=== PATIENT | female | born 2000 | race Hispanic/Latino ===

== ENCOUNTER 2020-05-12 15:19 | Emergency (ER) | payer SELFPAY ==
--- OUTSIDE RECORDS SUMMARY | 2020-05-12 15:22 | XMS REPORT | Continuity of Care Document ---
:2000 Author Organization [facility] t Address [address] [place] [address] Care Team Providers Name Role Phone Unavailable Unavailable Unavailable Problems Condition Condition Condition Status Onset Resolution Last Treating Co mments Source Name Details Category Date Date Treatment Clinician Date Problem Active [facility] depression Depression 9-17 da 00:00: Medical 00 Group Insertion Insertion Problem Active 0 [facility] of of 9-17 da intrauteri Intrauteri 00:00: Me dical ne ne 00 Group contracept Contracept leah device leah Device - - Problem Active 0 [facility] induced induced 6-17 da hypertensi Hypertensi 00:00: Me dical on on 00 Group Allergies, Adverse Reactions, Alerts This patient has no known allergies or adverse reactions. Social History Smoking Status Start Date Stop Date Source Never Smoker [facility] Medications Ordered Filled Start Stop Current Ordering Indication Dosage Frequency Signature Comments Components Source Medication Medication Date Date Medication? Clinician (SIG) Name Name Mirena 20 Mirena 20 No 1device Mirena 20 [facility] mcg/24 mcg/24 (s) mcg/24 da hours (6 hours (6 hours (6 Med ical yrs) 52 mg yrs) 52 mg yrs) 52 mg Group intrauterin intrauterin intrauteri e device e device ne device Take 1 Take 1 Take 1 device by device by device by intrauterin intrauterin intrauteri e route. e route. ne route. Immunizations Ordered Immunization Filled Immunization Date Status Commen ts Source Name Name Tdap Tdap 2018-06-18 Completed [facility] influenza, influenza, 2018-02-28 Completed [facility] injectable, injectable, 00:00:00 [facility] Grou p quadrivalent quadrivalent Vital Signs Vital Name Observation Time Observation Value Comments Source BMI (Body Mass 2020-04-27 00:00:00 40.6 kg/m2 [facility]) Group BP Systolic 2020-04-27 00:00:00 130 mm[Hg] [facility] Body Weight 2020-04-27 00:00:00 221[facility] BP Diastolic 2020-04-27 00:00:00 70 mm[Hg] [facility] Height 2020-04-27 00:00:00 62 [in_i] [facility] BP Diastolic 2018-11-12 00:00:00 78 mm[Hg] [facility] Height 2018-11-12 00:00:00 62 [in_i] [facility] BMI (Body Mass 2018-11-12 00:00:00 35.1 kg/m2 [facility]) Group BP Systolic 2018-11-12 00:00:00 132 mm[Hg] [facility] Body Weight 2018-11-12 00:00:00 191.9 [lb_av] [facility] Height 2018-09-19 00:00:00 62 [in_i] [facility] BP Diastolic 2018-08-23 00:00:00 87 mm[Hg] [facility] Height 2018-08-23 00:00:00 62 [in_i] [facility] BMI (Body Mass 2018-08-23 00:00:00 37.5 kg/m2 [facility]) Group BP Systolic 2018-08-23 00:00:00 135 mm[Hg] [facility] Body Weight 2018-08-23 00:00:00 205 [lb_av] [facility] BP Diastolic 2018-08-12 00:00:00 92 mm[Hg] [facility] Height 2018-08-12 00:00:00 62 [in_i] [facility] BMI (Body Mass 2018-08-12 00:00:00 37.3 kg/m2 [facility]) Group BP Systolic 2018-08-12 00:00:00 134 mm[Hg] [facility] Body Weight 2018-08-12 00:00:00 204 [lb_av] [facility] BP Diastolic 2018-07-29 00:00:00 75 mm[Hg] [facility] Height 2018-07-29 00:00:00 62 [in_i] [facility] BMI (Body Mass 2018-07-29 00:00:00 36.6 kg/m2 [facility]) Group BP Systolic 2018-07-29 00:00:00 132 mm[Hg] [facility] Body Weight 2018-07-29 00:00:00 200 [lb_av] [facility] BP Diastolic 2018-07-25 00:00:00 77 mm[Hg] [facility] Height 2018-07-25 00:00:00 62 [in_i] [facility] BMI (Body Mass 2018-07-25 00:00:00 36.7 kg/m2 [facility]) Group BP Systolic 2018-07-25 00:00:00 129 mm[Hg] [facility] Body Weight 2018-07-25 00:00:00 200.4 [lb_av] [facility] Procedures Procedure Date / Time Performing Clinician Source Performed Laparoscopic 2020-04-15 00:00:00 [facility] US, pelvis 2018-11-12 00:00:00 [facility] US, obstetric, limited 2018-07-29 00:00:00 [facility] Encounters Start End Encounter Admission Attending Care Care Encounter Source Date/Time Date/Time Type Type Clinicians Facility Department ID 2020-04-27 2020-04-27 Rich MOLINA [place] - [id number] [facility] 00:00:00 00:00:00 Antoine Leon MD: Medical Med[facility] l [address] [place] [address] General [address], [place] [address] , Ph. [phone] 2018-11-12 2018-11-12 Chilo [facility] [place] - [id number] [facility] 00:00:00 00:00:00 Discovery nicholas Guthrie MD: [address] [place] [address] [address], [place] [address] , Ph. [phone] 2018-09-19 2018-09-19 Chilo [facility] [place] - [id number] M [facility] 00:00:00 00:00:00 Discovery nicholas Guthrie MD: [address] [place] [address] [address], [place] [address] , Ph. [phone] 2018-08-23 2018-08-23 Donna [facility] [place] - [id number] [facility] 00:00:00 00:00:00 [facility] MD: [address] [place] [address] , Ph. [phone] 2018-08-12 2018-08-12 Betzaida Reilly [facility] [place] - [id number] [facility] 00:00:00 00:00:00 Discovery Juwan Srivastava: [facility] Medical [facility]ica [address] [address] , Ph. [phone] 2018-07-29 2018-07-29 Donna [facility] [place] - [id number] M [facility] 00:00:00 00:00:00 [facility] MD: [address] [place] [address] , Ph. [phone] 2018-07-25 2018-07-25 Donna [facility] [place] - [id number] [facility] 00:00:00 00:00:00 [facility] ORELLANA: [address] [facility], OBGYN [address], [place] [address] , Ph. [phone] Results Test Description Test Time Test Comments Results Result Comments Source Surgical pathology 2020-04-15 Results [facility] hop strainer study 02:25:00 Medical Group SARS-CoV-2 2020-04-15 80023-6 [facility] (COVID-19) RNA 01:07:00 Medical Gr oup [Presence] in Respiratory specimen by KAMALJIT with probe detection test, urine 2018-11-12 14:02:34 Test Item Value Reference Range Interpretation Comme nts Test (test code = Test) negative [facility] W Auto Differential panel - [id number] 00:00:00 Test Item Value Reference Range Interpretation Comments white blood count (test code = 17.7 K/uL 4.0-11.5 H white blood count) red blood count (test code = red 3.93 M/uL 3.80-5.20 blood count) hemoglobin (test code = 11.1 g/dL 10.5-15.7 hemoglobin) hematocrit (test code = 34.5 % 34.0-50.0 hematocrit) Erythrocyte mean corpuscular 87.8 fL 86-100 volume [Entitic volume] (test code = 71290-3) Erythrocyte mean corpuscular 28.2 pg 26.2-33.4 hemoglobin [Entitic mass] (test code = 73264-9) mean corpuscular HGB conc (test 32.2 g/dL 30-34 code = mean corpuscular HGB conc) red cell distribution width (test 13.6 % 12.0-15.5 code = red cell distribution width) platelet count (test code = 233 K/uL 165-450 platelet count) mean platelet volume (test code = 10.5 fL 9.4-12.6 mean platelet volume) Neutrophils.segmented/100 81.2 % 44.4-80.1 H leukocytes in Blood (test code = 31833-2) Ig% (test code = Ig%) 0.5 % 0.0-0.4 H lymphocyte% (test code = 12.5 % 10.0-50.0 lymphocyte%) Monocytes/100 leukocytes in Blood 5.1 % 3.6-12.0 by Automated count (test code = 5905-5) Eosinophils/100 leukocytes in 0.1 % 0.0-5.4 Blood by Automated count (test code = 713-8) Basophils/100 leukocytes in 0.6 % 0.1-1.2 Unspecified specimen (test code = 47864-2) absolute neutrophil count (test 14.37 K/uL 1.56-6.13 H code = absolute neutrophil count) Ig# (test code = Ig#) 0.1 K/uL 0.0-0.03 H Lymphocytes [#/volume] in 2.2 K/uL 1.18-3.74 Unspecified specimen by Automated count (test code = 39279-3) mono # (test code = mono #) 0.90 K/uL 0.24-0.86 H eos # (test code = eos #) 0.02 K/uL 0.04-0.36 L basophil # (test code = basophil 0.10 K/uL 0.01-0.08 H #) NRBC% (test code = NRBC%) 0 /100 WBC 0-0.2 NRBC# (test code = NRBC#) 0 K/uL [facility] panel - [id number] 00:00:00 Test Item Value Reference Range Interpretation Comments Color of Urine by Auto (test code = yellow 38352-9) Appearance of Urine (test code = clear clear 5767-9) Glucose [Presence] in Urine by negative negative Automated test strip (test code = 99002-2) Bilirubin.total [Mass/volume] in negative negative Urine (test code = 1978-6) Ketones [Mass/volume] in Urine by =1 negative H Automated test strip (test code = 65807-7) Specific gravity of Urine by 1.022 1.003-1.030 Automated test strip (test code = 79199-7) blood urine (test code = blood =3 negative H urine) pH of Urine (test code = 2756-5) 6.500 5-9 protein urine (UA) (test code = trace negative protein urine (UA)) Urobilinogen [Presence] in Urine normal 0.2-1.0 (test code = 55502-2) Nitrite [Presence] in Urine by Test negative negative strip (test code = 5802-4) Leukocyte esterase [Presence] in =1 negative H Urine by Automated test strip (test code = 62660-7) Erythrocytes [#/volume] in Urine by =20-29 0-5 H Automated count (test code = 798-9) Leukocytes [#/area] in Urine =6-10 0-5 H sediment by Automated count (test code = 81660-1) Epithelial cells [Presence] in Urine =1-5 0-5 sediment by Light microscopy (test code = 38614-1) Bacteria identified in Urine by small(1 none detect Culture (test code = 630-4) Casts [#/area] in Urine sediment by =6-10 none detect H Automated count (test code = 15440-8) urine culture added? (test code = yes urine culture added?) [facility] W Auto Differential panel - [id number] 00:00:00 Test Item Value Reference Range Interpretation Comments white blood count (test code = 14.4 K/uL 4.0-11.5 H white blood count) red blood count (test code = red 4.51 M/uL 3.80-5.20 blood count) hemoglobin (test code = 12.5 g/dL 10.5-15.7 hemoglobin) hematocrit (test code = 38.2 % 34.0-50.0 hematocrit) Erythrocyte mean corpuscular 84.7 fL 86-100 L volume [Entitic volume] (test code = 75397-5) Erythrocyte mean corpuscular 27.7 pg 26.2-33.4 hemoglobin [Entitic mass] (test code = 87057-9) mean corpuscular HGB conc (test 32.7 g/dL 30-34 code = mean corpuscular HGB conc) red cell distribution width (test 13.5 % 12.0-15.5 code = red cell distribution width) platelet count (test code = 273 K/uL 165-450 platelet count) mean platelet volume (test code = 11.1 fL 9.4-12.6 mean platelet volume) Neutrophils.segmented/100 78.5 % 44.4-80.1 leukocytes in Blood (test code = 99167-8) Ig% (test code = Ig%) 0.6 % 0.0-0.4 H lymphocyte% (test code = 14.8 % 10.0-50.0 lymphocyte%) Monocytes/100 leukocytes in Blood 5.4 % 3.6-12.0 by Automated count (test code = 5905-5) Eosinophils/100 leukocytes in 0.3 % 0.0-5.4 Blood by Automated count (test code = 713-8) Basophils/100 leukocytes in 0.4 % 0.1-1.2 Unspecified specimen (test code = 67340-4) absolute neutrophil count (test 11.28 K/uL 1.56-6.13 H code = absolute neutrophil count) Ig# (test code = Ig#) 0.1 K/uL 0.0-0.03 H Lymphocytes [#/volume] in 2.1 K/uL 1.18-3.74 Unspecified specimen by Automated count (test code = 64567-8) mono # (test code = mono #) 0.78 K/uL 0.24-0.86 eos # (test code = eos #) 0.04 K/uL 0.04-0.36 basophil # (test code = basophil 0.06 K/uL 0.01-0.08 #) NRBC% (test code = NRBC%) 0 /100 WBC 0-0.2 NRBC# (test code = NRBC#) 0 K/uL [facility] by [id number] 00:00:00Bacteria Ur [facility] HospitalReagin Ab [Presence] in Serum by [id number] 00:00:00 Test Item Value Reference Range Interpretation Comments Reagin Ab [Presence] in Serum by nonreactive nonreactive RPR (test code = 51794-7) [facility] virus surface Ag [Presence] in Serum 2018-08-29 00:00:00 Test Item Value Reference Range Interpretation Comments .hepatitis B surface antigen (test negative negative code = .hepatitis B surface antigen) [facility] macro (dipstick) panel - [id number] 14:04:00 Test Item Value Reference Range Interpretation Comments Leukocytes (test code = Leukocytes) Trace Nitrite (test code = Nitrite) negative Urobilinogen (test code = .2 Urobilinogen) Protein (test code = Protein) Negative pH (test code = pH) 6.0 Blood (test code = Blood) Negative Specific [place] (test code = 1.030 Specific [place]) Ketone (test code = Ketone) Negative Bilirubin (test code = Bilirubin) Negative Glucose (test code = Glucose) Negative Appearance (test code = Appearance) Clear Color (test code = Color) Yellow [facility] macro (dipstick) panel - [id number] 14:04:00 Test Item Value Reference Range Interpretation Comments Leukocytes (test code = Leukocytes) Trace Nitrite (test code = Nitrite) negative Urobilinogen (test code = .2 Urobilinogen) Protein (test code = Protein) Negative pH (test code = pH) 6.0 Blood (test code = Blood) Negative Specific [place] (test code = 1.030 Specific [place]) Ketone (test code = Ketone) Negative Bilirubin (test code = Bilirubin) Negative Glucose (test code = Glucose) Negative Appearance (test code = Appearance) Clear Color (test code = Color) Yellow [facility] macro (dipstick) panel - [id number] 10:41:52 Test Item Value Reference Range Interpretation Comments Leukocytes (test code = Leukocytes) Negative Nitrite (test code = Nitrite) negative Urobilinogen (test code = .2 Urobilinogen) Protein (test code = Protein) Negative pH (test code = pH) 7.0 Blood (test code = Blood) Negative Specific [place] (test code = 1.025 Specific [place]) Ketone (test code = Ketone) Negative Bilirubin (test code = Bilirubin) Negative Glucose (test code = Glucose) Negative Appearance (test code = Appearance) Clear Color (test code = Color) Yellow [facility] macro (dipstick) panel - [id number] 10:41:52 Test Item Value Reference Range Interpretation Comments Leukocytes (test code = Leukocytes) Negative Nitrite (test code = Nitrite) negative Urobilinogen (test code = .2 Urobilinogen) Protein (test code = Protein) Negative pH (test code = pH) 7.0 Blood (test code = Blood) Negative Specific [place] (test code = 1.025 Specific [place]) Ketone (test code = Ketone) Negative Bilirubin (test code = Bilirubin) Negative Glucose (test code = Glucose) Negative Appearance (test code = Appearance) Clear Color (test code = Color) Yellow [facility] macro (dipstick) panel - [id number] 09:53:00 Test Item Value Reference Range Interpretation Comments Leukocytes (test code = Leukocytes) Trace Nitrite (test code = Nitrite) negative Urobilinogen (test code = .2 Urobilinogen) Protein (test code = Protein) Negative pH (test code = pH) 6.0 Blood (test code = Blood) Negative Specific [place] (test code = 1.020 Specific [place]) Ketone (test code = Ketone) Negative Bilirubin (test code = Bilirubin) Negative Glucose (test code = Glucose) Negative Appearance (test code = Appearance) Clear Color (test code = Color) Yellow [facility] macro (dipstick) panel - [id number] 09:53:00 Test Item Value Reference Range Interpretation Comments Leukocytes (test code = Leukocytes) Trace Nitrite (test code = Nitrite) negative Urobilinogen (test code = .2 Urobilinogen) Protein (test code = Protein) Negative pH (test code = pH) 6.0 Blood (test code = Blood) Negative Specific [place] (test code = 1.020 Specific [place]) Ketone (test code = Ketone) Negative Bilirubin (test code = Bilirubin) Negative Glucose (test code = Glucose) Negative Appearance (test code = Appearance) Clear Color (test code = Color) Yellow [facility] [Presence] in Unspecified specimen by Organism specific [id number] 00:00:00 Test Item Value Reference Range Interpretation Comments group B streptococcus (gbs) by negative real-time PCR (test code = group B streptococcus (gbs) by real-time PCR) [facility] GroupStreptococcus agalactiae [Presence] in Unspecified specimen by Organism specific [id number] 00:00:00 Test Item Value Reference Range Interpretation Comments group B streptococcus (gbs) by negative real-time PCR (test code = group B streptococcus (gbs) by real-time PCR) [facility] HospitalChlamydia trachomatis+Neisseria gonorrhoeae DNA [Presence] in Unspecified specimen by Probe and target amplification method 2018-08-01 00:00:00 Test Item Value Reference Range Interpretation Comments chlamydia trachomatis by real-time negative PCR (reflex to azithromycin resistance by pyrosequencing) (test code = chlamydia trachomatis by real-time PCR (reflex to azithromycin resistance by pyrosequencing)) neisseria gonorrhoeae by real-time negative PCR (reflex to antibiotic resistance by molecular analysis) (test code = neisseria gonorrhoeae by real-time PCR (reflex to antibiotic resistance by molecular analysis)) [facility]omat[facility]+Neisseria gonorrhoeae DNA [Presence] in Unspecified specimen by Probe and target amplification method 2018-08-01 00:00:00 Test Item Value Reference Range Interpretation Comments chlamydia trachomatis by real-time negative PCR (reflex to azithromycin resistance by pyrosequencing) (test code = chlamydia trachomatis by real-time PCR (reflex to azithromycin resistance by pyrosequencing)) neisseria gonorrhoeae by real-time negative PCR (reflex to antibiotic resistance by molecular analysis) (test code = neisseria gonorrhoeae by real-time PCR (reflex to antibiotic resistance by molecular analysis)) [facility] macro (dipstick) panel - [id number] 10:11:00 Test Item Value Reference Range Interpretation Comments Leukocytes (test code = Leukocytes) Negative Nitrite (test code = Nitrite) negative Urobilinogen (test code = .2 Urobilinogen) Protein (test code = Protein) Trace pH (test code = pH) 7.0 Blood (test code = Blood) Negative Specific [place] (test code = 1.025 Specific [place]) Ketone (test code = Ketone) Negative Bilirubin (test code = Bilirubin) Negative Glucose (test code = Glucose) Negative Appearance (test code = Appearance) Clear Color (test code = Color) Yellow [facility] macro (dipstick) panel - [id number] 10:11:00 Test Item Value Reference Range Interpretation Comments Leukocytes (test code = Leukocytes) Negative Nitrite (test code = Nitrite) negative Urobilinogen (test code = .2 Urobilinogen) Protein (test code = Protein) Trace pH (test code = pH) 7.0 Blood (test code = Blood) Negative Specific [place] (test code = 1.025 Specific [place]) Ketone (test code = Ketone) Negative Bilirubin (test code = Bilirubin) Negative Glucose (test code = Glucose) Negative Appearance (test code = Appearance) Clear Color (test code = Color) Yellow [facility] macro (dipstick) panel - [id number] 10:11:00 Test Item Value Reference Range Interpretation Comments Leukocytes (test code = Leukocytes) Negative Nitrite (test code = Nitrite) negative Urobilinogen (test code = .2 Urobilinogen) Protein (test code = Protein) Trace pH (test code = pH) 7.0 Blood (test code = Blood) Negative Specific [place] (test code = 1.025 Specific [place]) Ketone (test code = Ketone) Negative Bilirubin (test code = Bilirubin) Negative Glucose (test code = Glucose) Negative Appearance (test code = Appearance) Clear Color (test code = Color) Yellow [facility] antibody screen [Presence] in Serum or Plasma 2018-07-29 08:35:00 Test Item Value Reference Range Interpretation Comments Blood group antibody screen negative [Presence] in Serum or Plasma (test code = 890-4) [facility] antibody screen [Presence] in Serum or Plasma 2018-07-29 08:35:00 Test Item Value Reference Range Interpretation Comments Blood group antibody screen negative [Presence] in Serum or Plasma (test code = 890-4) [facility] antibody screen [Presence] in Serum or Plasma 2018-07-29 08:35:00 Test Item Value Reference Range Interpretation Comments Blood group antibody screen negative [Presence] in Serum or Plasma (test code = 890-4) [facility]
[2020-05-12 18:21] LABS: Absolute Lymphocytes (CBC) 1.1 K/uL (0.7-4.9); Basophils % 0.6 % (0-1.3); Hematocrit 42.6 % (36.0-45.0); Lymphocytes % 15.8 % (15.3-44.8); MPV 8.3 fL (7.6-11.3); RBC Red Blood Cell Count 5.11 M/uL (3.86-4.86)
[2020-05-12] MEDS ORDERED: MORPHINE 4 MG/ML SYR ONE ×3 (18:25→22:38)
[2020-05-12] MEDS ORDERED: ONDANSETRON 4 MG/2 ML VIAL ONE (18:25)
[2020-05-12 18:29] LABS: Protime INR 0.99
--- NOTE | 2020-05-12 18:55 | RAD REPORT ---
EXAM DESCRIPTION: RAD - Chest Single View - 05/12/2020 6:28 pm CLINICAL HISTORY: CHEST PAIN COMPARISON: None TECHNIQUE: AP portable chest image was obtained 05/12/2020 6:28 pm . FINDINGS: Lungs are clear. Heart and vasculature are normal. No measurable pleural effusion and no p neumothorax. No acute bony abnormality seen. No acute aortic findings suspected. IMPRESSION: No acute cardiopulmonary process.
[2020-05-12] MEDS ORDERED: NA CHLORIDE 0.9% 1,000 ML ONE (19:01)
[2020-05-12 19:23] LABS: AST/SGOT 204 U/L (15-37); Albumin 4.6 g/dL (3.4-5.0); BUN Blood Urea Nitrogen 7 mg/dL (7-18); Bicarbonate 25 mmol/L (21-32); Bilirubin Direct 4.9 mg/dL (0-0.2); Bilirubin Total 6.3 mg/dL (0.2-1.0); Glucose Level 94 mg/dL (74-106); Lipase 86 U/L (73-393); Potassium 3.9 mmol/L (3.5-5.1); Protein, Total 8.4 g/dL (6.4-8.2); Sodium Level 137 mmol/L (136-145)
[2020-05-12 19:27] LABS: Alkaline Phosphatase ND U/L (45-117)
[2020-05-12 19:30] LABS: ALT/SGPT 538 U/L (12-78)
--- NOTE | 2020-05-12 19:57 | RAD REPORT ---
EXAM DESCRIPTION: CT - Chest For Pe Angio - 05/12/2020 7:42 pm CLINICAL HISTORY: CHEST PAIN COMPARISON: No comparisons TECHNIQUE: Dynamically enhanced 3 mm thick images of the chest were obtained during administration o f approximately 150mL Isovue 370 IV contrast. Coronal and oblique MIP reconstruction images were gene rated and reviewed. Exam utilizes a protocol to evaluate the pulmonary arterial tree. All CT scans are performed using dose optimization technique as appropriate and may include automated exposure control or mA/KV adjustment according to patient size. FINDINGS: Exam has motion degradation artifact as well is suboptimal opacification of the pulmonary arterial tree. No emboli are present in the main pulmonary arteries or lobar arteries of each lung fi eld. There are several areas of diminished attenuation in the peripheral aspects of the segmental bra nches extending into subsegmental branches. These areas of diminished attenuation are also in areas o f suboptimal visualization. Findings are considered suspicious but not definitive for pulmonary embol ic disease. The aorta as imaged shows no acute or suspicious finding. No pericardial thickening or effusion. No infiltrate or mass in the lung parenchyma. Interstitial markings are accentuated by motion. No ple ural effusion or pleural thickening. No mediastinal or hilar suspicious masses. No chest wall masses or abnormal axillary lymphadenopathy. IMPRESSION: Exam is suboptimal as detailed. Findings are suspicious but not definitive for pulmonary emboli in the left upper lobe and in each lower lobe segmental and subsegmental branches. A V/Q scan would not provide sufficient resolution to confirm or exclude the possible pulmonary embol i seen on this study. No mass or consolidation of the lung parenchyma.
--- NOTE | 2020-05-12 20:00 | RAD REPORT ---
EXAM DESCRIPTION: CT - Abdomen Pelvis W Contrast - 05/12/2020 7:44 pm CLINICAL HISTORY: ABD PAIN COMPARISON: No comparisons TECHNIQUE: Biphasic, helical CT imaging of the abdomen and pelvis was performed following 100 ml non -ionic IV contrast. No oral contrast administered. All CT scans are performed using dose optimization technique as appropriate and may include automated exposure control or mA/KV adjustment according to patient size. FINDINGS: No suspicious findings in the lung bases. The liver, spleen, and pancreas show no suspicious findings. Gallbladder is absent. Intrahepatic and extrahepatic biliary tree dilatation present with the common bile duct measuring up to [address] Duct stones can be occult. No pancreatic or duodenal mass. Biliary finding may simply reflect th e reservoir effect that can occur after a cholecystectomy. Correlation is needed with any biliary obs tructive symptoms. Symmetric renal function is seen with no hydronephrosis or suspicious renal mass. No pyelonephritis o r acute parenchymal process. No bladder abnormalities. No adrenal abnormalities. Uterus and ovaries s how no suspicious findings. IUD is in place in the fundal portion of the uterus. No dilated bowel loops or bowel wall thickening. Appendix is normal. No acute GI process identifiable . Patient has a few small nonspecific mesenteric lymph nodes. No free air, free fluid or inflammatory stranding. No hernia, mass or bulky lymphadenopathy. No suspicious bony findings. IMPRESSION: Biliary tree dilatation in a patient is status post cholecystectomy. This can be the re servoir effect that occurs after a cholecystectomy. Correlation is needed with any biliary obstructiv e clinical or laboratory findings. Exam is otherwise without acute or significant finding.
[2020-05-12 20:14] LABS: Urine Blood NEGATIVE (NEG); Urine Glucose NEGATIVE (NEG); Urine Protein NEGATIVE (NEG); Urine pH 5.5 (5.0-7.0)
--- NOTE | 2020-05-12 20:36 | EDPHYS ---
Physician Documentation [facility] Name: Prerna Esposito Age: 20 yrs Sex: Female : 2000 Arrival Date: 05/12/2020 Time: 15:21 Bed 8 Private MD: Jayy Wild ED Physician Boyd Lawson HPI: 05/12 18:09 This 20 yrs old Female presents to ER via Ambulatory with complaints of Back jmm Pain, Chest Pain. 18:09 The patient presents with pain that is acute. Onset: The symptoms/episode jmm began/occurred acutely, 2 day(s) ago. The pain radiates to the thoracic area. Associated signs and symptoms: Pertinent positives: abdominal pain, chest pain. Modifying factors: The patient symptoms are alleviated by nothing, the patient symptoms are aggravated by any movement. Patient states pain developed acutely this Sunday, unable to eat due to pain. Abdominal pain radiates to the chest and back. Patient is 1 month s/p cholecystectomy. Historical: - Allergies: 15:37 No Known Allergies; ll1 - PMHx: 15:37 None; ll1 - PSHx: 15:37 ; ll1 - Immunization history:: Flu vaccine is not up to date. - Social history:: Smoking status: Patient denies any tobacco usage or history of. ROS: 18:09 Constitutional: Negative for fever, chills, and weight loss, Respiratory: Negative for jmm shortness of breath, cough, wheezing, and pleuritic chest pain. 18:09 Cardiovascular: Positive for chest pain. 18:09 Abdomen/GI: Positive for abdominal pain. 18:09 All other systems are negative. Exam: 18:09 Constitutional: This is a well developed, well nourished patient who is awake, alert, jmm and in no acute distress. Head/Face: atraumatic. Eyes: EOMI, no conjunctival erythema appreciated ENT: Moist Mucus Membranes Neck: Trachea midline, Supple Chest/axilla: Normal chest wall appearance and motion. Cardiovascular: Regular rate and rhythm. No edema appreciated Respiratory: Normal respirations, no respiratory distress appreciated 18:09 Back: Normal ROM Skin: General appearance color normal MS/ Extremity: Moves all extremities, no obvious deformities appreciated, no edema noted to the lower extremities Neuro: Awake and alert, normal gait Psych: Behavior is normal, Mood is normal, Patient is cooperative and pleasant 18:09 Abdomen/GI: Inspection: abdomen appears normal, Bowel sounds: normal, Palpation: soft, mild abdominal tenderness, in the epigastric area. 18:09 Neuro: Orientation: is normal, Mentation: is normal, Memory: is normal. 18:09 Psych: Behavior/mood is pleasant, cooperative. 19:37 Eyes: Sclera: icterus, is present. [facility] Vital Signs: 15:33 BP 126 / 90; Pulse 63; Resp 17; Temp 98.6; Pulse Ox 97% ; Weight 99.79 kg; Height 5 ft. ll1 2 in. (157.48 cm); Pain 8/10; 17:55 Pulse 73; Resp 18; Pulse Ox 100% on R/A; Pain 8/10; ss 18:36 BP 108 / 53; Pulse 68; Resp 15; Pulse Ox 99% on R/A; hb 20:00 BP 116 / 64; Pulse 63; Resp 16; Pulse Ox 100% on R/A; rv 21:08 BP 119 / 58; Pulse 60; Resp 13; Pulse Ox 100% on R/A; rv 22:30 BP 102 / 52; Pulse 66; Resp 14; Temp 98.3; Pulse Ox 100% on R/A; rv 15:33 Body Mass Index 40.24 (99.79 kg, 157.48 cm) ll1 MDM: 18:03 Patient medically screened. [facility] 19:46 Data reviewed: vital signs, nurses notes. Counseling: I had a detailed discussion with [facility] the patient and/or guardian regarding: the historical points, exam findings, and any diagnostic results supporting the discharge/admit diagnosis, lab results, radiology results, the need to transfer to another facility. ED course: Labs, PE findings, HPI concerning for choledocholithiasis. We do not have GI here. I discussed transfer with the patient. She has a preference for [facility], does not want to go into [place]. . 20:33 ED course: I discussed the patient with Dr. Boateng whom accepted the patient at [facility]. [facility] 05/12 17:54 Order name: Basic Metabolic Panel; Complete Time: 19:39 [facility] 05/12 17:54 Order name: CBC with Diff; Complete Time: 18:39 [facility] 05/12 17:54 Order name: Hepatic Function; Complete Time: 19:39 [facility] 05/12 17:54 Order name: Lipase; Complete Time: 19:39 [facility] 05/12 17:58 Order name: Troponin (emerg Dept Use Only) hb 05/12 17:58 Order name: Protime (+inr); Complete Time: 18:39 hb 05/12 17:58 Order name: Ptt, Activated; Complete Time: 18:39 hb 05/12 17:58 Order name: Troponin (Emerg Dept Use Only); Complete Time: 18:49 EDMS 05/12 18:04 Order name: D-Dimer; Complete Time: 18:46 [facility] 05/12 18:13 Order name: CPK [facility] 05/12 18:13 Order name: Creatine Phosphokinase; Complete Time: 18:49 EDOK 05/12 18:17 Order name: Urine Dipstick--Ancillary (enter results); Complete Time: 20:17 mt 05/12 18:17 Order name: Urine --Ancillary (enter results); Complete Time: 20:17 mt 05/12 15:38 Order name: EKG; Complete Time: 15:39 sv 05/12 15:38 Order name: EKG - Nurse/Tech; Complete Time: 15:49 sv 05/12 17:54 Order name: IV Saline Lock; Complete Time: 18:16 [facility] 05/12 17:54 Order name: Labs collected and sent; Complete Time: 18:16 [facility] 05/12 17:58 Order name: Chest Single View XRAY; Complete Time: 18:57 [facility] 05/12 17:58 Order name: Urine Test (obtain specimen); Complete Time: 18:16 [facility] 05/12 18:40 Order name: CT Chest For PE Angio; Complete Time: 20:00 [facility] 05/12 18:40 Order name: CT Abd/Pelvis - IV Contrast Only; Complete Time: 20:02 [facility] 05/12 21:24 Order name: SARS-COV-2 RT PCR EDMS Administered Medications: 18:10 Drug: Zofran (Ondansetron) 4 mg Route: IVP; Site: left antecubital; ss 18:36 Follow up: Response: No adverse reaction hb 18:15 Drug: morphine 4 mg Route: IVP; Site: left antecubital; ss 18:36 Follow up: Response: No adverse reaction hb 18:47 Drug: NS 0.9% 1000 ml Route: IV; Rate: 1 bolus; Site: left antecubital; sv 22:32 Follow up: IV Status: Completed infusion; IV Intake: 1000ml rv 20:53 Drug: Heparin (DVT/PE- Bolus per protocol) - HEParin 80 units/kg {Co-Signature: [facility] (Dixon Rodrigues RN).} Route: IVP; Site: left antecubital; 22:32 Follow up: Response: No adverse reaction rv 20:54 Drug: Heparin (DVT/PE Drip) 18 units/kg/hr - (HEParin 82039 units, D5W 500 ml) rv {Co-Signature: (Dixon Rodrigues RN).} Route: IV; Rate: calculated rate; Site: left antecubital; 22:31 Follow up: IV Status: Infusion continued upon transfer rv 21:07 Drug: morphine 4 mg Route: IVP; Site: right forearm; rv 22:31 Follow up: Response: No adverse reaction; Pain is decreased; RASS: Alert and Calm (0) rv 22:25 Drug: morphine 4 mg Route: IVP; Site: right forearm; rv 22:31 Follow up: Response: Medication administered at discharge. rv Disposition: 05/13 21:46 Available for consultation at all times. Did not see or evaluate patient unless ps1 otherwise noted. . Disposition: 05/12/20 20:35 Transfer ordered to [facility]. Diagnosis are Cholelithiasis, Pulmonary embolism. - Reason for transfer: Higher level of care. - Accepting physician is Ye. - Condition is Stable. - Problem is new. - Symptoms are unchanged. Signatures: Dispatcher [employer] EDOK Jeni Lucas RN EZE sv Iasac Multani PA PA jmm Smirch, Shelby, RN RN ss Boyd Lawson MD MD ps1 Fortino Chauhan RN RN rv Yunier Valero RN RN ll1 Debbie Alvarez RN Dixon Rodrigues RN Corrections: (The following items were deleted from the chart) 05/12 20:37 19:41 CORONAVIRUS+MR.LAB.BRZ ordered. EDOK EDOK 22:32 20:35 05/12/2020 20:35 Transfer ordered to [facility]. Diagnosis is Cholelithiasis; rv Pulmonary embolism. Reason for transfer: Higher level of care. Accepting physician is Stevie. Condition is Stable. Problem is new. Symptoms are unchanged. hanny
--- NOTE | 2020-05-12 20:36 | ER ---
Nurse's Notes [facility] Name: Prerna Esposito Age: 20 yrs Sex: Female : 2000 Arrival Date: 05/12/2020 Time: 15:21 Bed 8 Private MD: Jayy Wild Diagnosis: Cholelithiasis;Pulmonary embolism Presentation: 05/12 15:33 Chief complaint: Patient states: Back and CP for 3 days. 1 episode of N/V Sunday ll1 morning. No fever or cough. Worked out Sunday, first time in a month. States the pains began after that. Coronavirus screen: Client denies travel out of the [place] in the last 14 days. At this time, the client does not indicate any symptoms associated with coronavirus-19. Ebola Screen: Patient denies travel to an Ebola-affected area in the 21 days before illness onset. Initial Sepsis Screen: Does the patient meet any 2 criteria? No. Patient's initial sepsis screen is negative. Does the patient have a suspected source of infection? No. Patient's initial sepsis screen is negative. Risk Assessment: Do you want to hurt yourself or someone else? Patient reports no desire to harm self or others. Onset of symptoms was May 10, 2020. 15:33 Method Of Arrival: Ambulatory ll1 15:33 Acuity: BEN 3 ll1 Triage Assessment: 15:37 General: Appears in no apparent distress. Behavior is calm, cooperative, appropriate ll1 for age. Pain: Complains of pain in back and chest Quality of pain is described as aching. Neuro: No deficits noted. Cardiovascular: Reports chest pain, Heart tones S1 S2 Capillary refill < 3 seconds Clubbing of nail beds is absent JVD is absent Patient's skin is warm and dry. Rhythm is regular. Respiratory: No deficits noted. Musculoskeletal: Circulation, motion, and sensation intact. Capillary refill < 3 seconds, Reports pain in back. Historical: - Allergies: 15:37 No Known Allergies; ll1 - PMHx: 15:37 None; ll1 - PSHx: 15:37 ; ll1 - Immunization history:: Flu vaccine is not up to date. - Social history:: Smoking status: Patient denies any tobacco usage or history of. Screenin:45 Abuse screen: Denies threats or abuse. Denies injuries from another. Nutritional hb screening: No deficits noted. Tuberculosis screening: No symptoms or risk factors identified. Fall Risk None identified. Assessment: 15:38 Reassessment: Received VO from Dr Lawson for EKG order. sv 17:55 General: Appears uncomfortable, Behavior is cooperative, anxious, Denies fever, feeling ss ill, fatigue, chills. Pain: Complains of pain in chest, upper abd, mid back. Neuro: Level of Consciousness is awake, alert, obeys commands, Oriented to person, place, time, situation. Cardiovascular: Capillary refill < 3 seconds is brisk in bilateral fingers. Respiratory: Airway is patent Respiratory effort is even, unlabored, Respiratory pattern is regular, symmetrical. GI: Reports vomiting x 1 Patient currently denies diarrhea, nausea. : No signs and/or symptoms were reported regarding the genitourinary system. Denies burning with urination, urinary frequency. EENT: Oral mucosa is moist. Throat is clear. EENT: Sclera/Cornea sclera appears yellow in color. Pt reports her has noticed this too. . Derm: Skin is intact, is healthy with good turgor, Skin is dry, Skin is pink, warm \T\ dry. normal. Musculoskeletal: Circulation, motion, and sensation intact. Range of motion: intact in all extremities, Swelling absent. 18:36 Reassessment: Patient appears in no apparent distress at this time. Patient and/or hb family updated on plan of care and expected duration. Pain level reassessed. Patient is alert, oriented x 3, equal unlabored respirations, skin warm/dry/pink. 21:44 Reassessment: REPORT GIVEN TO KAVON LOO [facility]IA [facility]. rv Vital Signs: 15:33 BP 126 / 90; Pulse 63; Resp 17; Temp 98.6; Pulse Ox 97% ; Weight 99.79 kg; Height 5 ft. ll1 2 in. (157.48 cm); Pain 8/10; 17:55 Pulse 73; Resp 18; Pulse Ox 100% on R/A; Pain 8/10; ss 18:36 BP 108 / 53; Pulse 68; Resp 15; Pulse Ox 99% on R/A; hb 20:00 BP 116 / 64; Pulse 63; Resp 16; Pulse Ox 100% on R/A; rv 21:08 BP 119 / 58; Pulse 60; Resp 13; Pulse Ox 100% on R/A; rv 22:30 BP 102 / 52; Pulse 66; Resp 14; Temp 98.3; Pulse Ox 100% on R/A; rv 15:33 Body Mass Index 40.24 (99.79 kg, 157.48 cm) ll1 ED Course: 15:21 Patient arrived in ED. mr 15:21 Jayy Wild MD is Private Physician. mr 15:36 Triage completed. ll1 15:37 Arm band placed on. ll1 15:49 EKG completed in triage. Results shown to MD. ll1 17:14 Isaac Multani PA is PHCP. m 17:14 Boyd Lawson MD is Attending Physician. [facility] 17:44 Susan Sethi, EZE is Primary Nurse. ss 17:45 Patient has correct armband on for positive identification. Bed in low position. Call hb light in reach. Side rails up X 1. 18:04 Inserted saline lock: 20 gauge in left antecubital area, using aseptic technique. Blood hb collected. 18:16 CPK Sent. hb 18:16 Troponin (emerg Dept Use Only) Sent. hb 18:28 Chest Single View XRAY In Process Unspecified. EDMS 18:36 Notified Nurse Practitioner and/or Physician Safety Physician of a critical lab result(s), sv [id number]. 19:42 CT Chest For PE Angio In Process Unspecified. EDMS 19:43 initiated a transfer with Chad from [facility] Transfer Center. [facility] 19:44 CT Abd/Pelvis - IV Contrast Only In Process Unspecified. EDMS 21:00 Inserted saline lock: 18 gauge in right forearm, using aseptic technique. rv 21:22 administrative approval given by Chad Fierro/ patient has been accepted to [facility] 10 B 1030/ Dr. De La Cruz has accepted the patient in transfer/ report to be called to [phone]. 22:30 IV is patent, with fluids infusing freely, Patient transferred, IV remains in place. rv 22:30 No provider procedures requiring assistance completed. rv Administered Medications: 18:10 Drug: Zofran (Ondansetron) 4 mg Route: IVP; Site: left antecubital; ss 18:36 Follow up: Response: No adverse reaction hb 18:15 Drug: morphine 4 mg Route: IVP; Site: left antecubital; ss 18:36 Follow up: Response: No adverse reaction hb 18:47 Drug: NS 0.9% 1000 ml Route: IV; Rate: 1 bolus; Site: left antecubital; sv 22:32 Follow up: IV Status: Completed infusion; IV Intake: 1000ml rv 20:53 Drug: Heparin (DVT/PE- Bolus per protocol) - HEParin 80 units/kg {Co-Signature: [facility] (Dixon Rodrigues RN).} Route: IVP; Site: left antecubital; 22:32 Follow up: Response: No adverse reaction rv 20:54 Drug: Heparin (DVT/PE Drip) 18 units/kg/hr - (HEParin 94020 units, D5W 500 ml) rv {Co-Signature: (Dixon Rodrigues RN).} Route: IV; Rate: calculated rate; Site: left antecubital; 22:31 Follow up: IV Status: Infusion continued upon transfer rv 21:07 Drug: morphine 4 mg Route: IVP; Site: right forearm; rv 22:31 Follow up: Response: No adverse reaction; Pain is decreased; RASS: Alert and Calm (0) rv 22:25 Drug: morphine 4 mg Route: IVP; Site: right forearm; rv 22:31 Follow up: Response: Medication administered at discharge. rv Intake: 22:32 IV: 1000ml; Total: 1000ml. rv Outcome: 20:35 ER care complete, transfer ordered by . [facility] 22:30 Transferred by ground EMS Note: [facility] rv 22:30 Condition: good 22:30 Instructed on the need for transfer. 22:32 Patient left the ED. rv Signatures: Dispatcher [employer] EDMS Jeni Lucas RN Isaac Sinha PA PA jmm Rivera, Mary mr Smirch, Shelby RN EZE Debbie Alvarez RN RN Keanu Ryder 2 Fortino Chauhan RN RN rv Yunier Valero RN RN ll1 Dixon Rodrigues RN
[2020-05-12] MEDS ORDERED: HEPARIN/D5W 25,000 UNIT/500 ML BAG IV ONE (20:58)
[2020-05-12] MEDS ORDERED: HEPARIN 5000 UNIT/ML 1 ML VIAL ONE (20:58)
[2020-05-12 22:44] VITALS: O2SAT 100
[2020-05-12 22:47] VITALS: BP 102/52; TEMP 98.3
== END 2020-05-12 22:32 | disposition short-term general hospital (02) ==
LOC: ER 15:19
DX: I26.99 Other pulmonary embolism without acute cor pulmonale (principal); K80.20 Calculus of gallbladder without cholecystitis without obstruction
CPT/HCPCS: 36415; 71045; 71275; 74177; 80048; 80076; 81003; 81025; 82550; 83690; 84484; 85025; 85379; 85610; 85730; 93005; 99285; J1644; J2405; J7030; Q9967; U0003